=== PATIENT | male | born 1985 | race African-American/Black ===

== ENCOUNTER 2019-07-23 10:01 | Emergency (ER) | payer OTHER ==
[2019-07-23 10:08] VITALS: BP 128/86; PULSE 74; TEMP 98.6; BMI 31.8
--- NOTE | 2019-07-23 10:29 | PDOC ---
History of Present Illness - General History Source: Patient Exam Limitations: No Limitations <Lisa Obando - Last Filed: 07/23/19 13:02> <Juan Diego Canela - Last Filed: 07/23/19 15:00> - General Chief Complaint: Edema Stated Complaint: PAIN Time Seen by Provider: 07/23/19 10:18 Past History - Travel Traveled outside of the country in the last 30 days: No Close contact w/someone who was outside of country & ill: No - Past Medical History COPD: No - Suicide/Smoking/Psychosocial Hx Smoking History: Never smoked Hx Alcohol Use: Yes Drug/Substance Use Hx: No <Lisa Obando - Last Filed: 07/23/19 13:02> <Juan Diego Canela - Last Filed: 07/23/19 15:00> - Past Medical History Allergies/Adverse Reactions: Allergies Allergy/AdvReac Type Severity Reaction Status Date / Time No Known Allergies Allergy Verified 07/23/19 10:07 Home Medications: Ambulatory Orders Diphenhydramine HCl [Benadryl -] 25 mg PO Q8H #21 capsule 07/23/19 predniSONE [Deltasone -] 40 mg PO DAILY #8 tablet 07/23/19 Review of Systems - Review of Systems Able to Perform ROS?: Yes Comments:: 07/23/19 13:02 CONSTITUTIONAL: Absent: fever, chills, diaphoresis, generalized weakness, malaise, loss of appetite HEENT: Present: difficulty swallowing, sore throat Absent: rhinorrhea, nasal congestion , throat swelling, mouth swelling, ear pain, eye pain, visual Changes CARDIOVASCULAR: Absent: chest pain, loss of consciousness, palpitations, irregular heart rate, peripheral edema RESPIRATORY: Absent: cough, shortness of breath, dyspnea with exertion, orthopnea, wheezing, stridor, hemoptysis GASTROINTESTINAL: Absent: abdominal pain, abdominal distension, nausea, vomiting, diarrhea, constipation, melena, hematochezia GENITOURINARY: Absent: dysuria, frequency, urgency, hesitancy, hematuria, flank pain, genital pain MUSCULOSKELETAL: Absent: myalgia, arthralgia, joint swelling SKIN: Absent: rash, itching, pallor HEMATOLOGIC/IMMUNOLOGIC: Absent: easy bleeding, easy bruising, lymphadenopathy, frequent infections ENDOCRINE: Absent: unexplained weight gain, unexplained weight loss, heat intolerance, cold intolerance NEUROLOGIC: Absent: headache, focal weakness or paresthesias, dizziness, unsteady gait, seizure, mental status changes, bladder or bowel incontinence PSYCHIATRIC: Absent: anxiety, depression, suicidal or homicidal ideation, hallucinations. Is the patient limited Swiss proficient: No <Lisa Obando - Last Filed: 07/23/19 13:02> *Physical Exam - Vital Signs Last Vital Signs Temp Pulse Resp BP Pulse Ox 98.6 F 74 16 128/86 97 07/23/19 10:03 07/23/19 10:03 07/23/19 10:03 07/23/19 10:03 07/23/19 10:03 - Physical Exam Comments: 07/23/19 13:04 GENERAL: Well developed, well nourished. Awake and alert. No acute distress. Pt is swallowing his secretions. HEENT: Normocephalic, atraumatic. PERRLA, EOMI. No conjunctival pallor. Sclera are non- icteric. Moist mucous membranes. Oropharynx is with an edematous uvula and associated erythema without exudate. Uvula is midline. No stridor noted NECK: Supple. Full ROM. No JVD. Carotid pulses 2+ and symmetric, without bruits. No thyromegaly. No lymphadenopathy. CARDIOVASCULAR: Regular rate and rhythm. No murmurs, rubs, or gallops. Distal pulses are 2+ and symmetric. PULMONARY: No evidence of respiratory distress. Lungs clear to auscultation bilaterally. No wheezing, rales or rhonchi. SKIN: Warm and dry. Normal capillary refill. No rashes. No jaundice. NEUROLOGICAL: Alert, awake, appropriate. Cranial nerves 2-12 intact. No deficits to light touch and temperature in face, upper extremities and lower extremities. No motor deficits in the in face, upper extremities and lower extremities. Normoreflexic in the upper and lower extremities. Normal speech. Toes are down- going bilaterally. Gait is normal without ataxia. PSYCHIATRIC: Cooperative. Good eye contact. Appropriate mood and affect. <Lisa Obando - Last Filed: 07/23/19 13:02> - Vital Signs Last Vital Signs Temp Pulse Resp BP Pulse Ox 98.6 F 74 16 128/86 97 07/23/19 10:03 07/23/19 10:03 07/23/19 10:03 07/23/19 10:03 07/23/19 10:03 <Juan Diego Canela - Last Filed: 07/23/19 15:00> ED Treatment Course - Medications Given in the ED: ED Medications Discontinued Medications Generic Name Dose Route Start Last Admin Trade Name Torrey PRN Reason Stop Dose Admin Acetaminophen 650 mg 07/23/19 10:33 07/23/19 10:58 Tylenol Oral Solution - PO 07/23/19 10:34 650 mg ONCE ONE Administration Dexamethasone 10 mg 07/23/19 10:33 07/23/19 10:58 Decadron Liquid - PO 07/23/19 10:34 10 mg ONCE ONE Administration Diphenhydramine HCl 25 mg 07/23/19 11:12 07/23/19 11:19 Benadryl Oral Solution - PO 07/23/19 11:13 25 mg ONCE ONE Administration Ranitidine HCl 300 mg 07/23/19 11:12 07/23/19 11:19 Zantac - PO 07/23/19 11:13 300 mg ONCE ONE Administration <Juan Diego Canela - Last Filed: 07/23/19 15:00> Medical Decision Making - Medical Decision Making 07/23/19 13:37 The patient is a 34 y/o M with no PMH who presents to the ER with difficulty swallowing and throat pain. The patient feels like there is something stuck in his throat. The pain started after vomiting yesterday. Denies fevers, chills, cough. Pt is able to swallow his secretions. He has his vaccinations. A/P: Uvulitis On exam the uvula is edematous and erythematous. No exudate noted. Pt swallowing secretions. No stridor X-ray neck soft tissue obtained. No evidence of Epiglottis Strep negative Steroids, Benadryl, Zantac and Tylenol given with relief of symptoms DC home with strict return precautions; ENT follow up given I discussed the physical exam findings, ancillary test results and final diagnoses with the patient. I answered all of the patient's questions. The patient was satisfied with the care received and felt comfortable with the discharge plan and treatment plan. The Patient agrees to follow up with the primary care physician/specialist within 24-72 hours. Return precautions were given. <Lisa Obando - Last Filed: 07/23/19 13:02> *DC/Admit/Observation/Transfer - Discharge Dispostion Decision to Admit order: No <Lisa Obando - Last Filed: 07/23/19 13:02> <Juan Diego Canela - Last Filed: 07/23/19 15:00> Diagnosis at time of Disposition: Uvulitis - Discharge Dispostion Disposition: HOME Condition at time of disposition: Stable - Prescriptions Prescriptions: Diphenhydramine HCl [Benadryl -] 25 mg PO Q8H #21 capsule predniSONE [Deltasone -] 40 mg PO DAILY #8 tablet - Referrals Referrals: Ketan Moody MD [Staff Physician] - - Patient Instructions Printed Discharge Instructions: DI for Uvulitis Additional Instructions: You have uvulitis (inflammation of your uvula) Your x-ray was normal and your strep test was negative Please take the prednisone as directed starting tomorrow. You got your first dose in the ED today Take the benadryl every 8 hours to help with the inflammation You may take Tylenol 650mg every 4 hours as needed for pain Follow up with ENT this week. A referral has been provided to you Return to the ER for worsening pain, difficulty swallowing, if you are unable to swallow your spit, have difficulty breathing or if you have any changes in your symptoms. - Post Discharge Activity Forms/Work/School Notes: Back to Work
[2019-07-23] MEDS ORDERED: ACETAMINOPHEN 650 MG/20.3 ML ORAL SOLUTION (CUPS) PO ONE (10:33)
[2019-07-23] MEDS ORDERED: DEXAMETHASONE LIQUID 0.5 MG/5 ML PO ONE (10:33)
[2019-07-23] MEDS ORDERED: ACETAMINOPHEN 650 MG/20.3 ML ORAL SOLUTION (CUPS) ONE (10:48)
[2019-07-23] MEDS ORDERED: DEXAMETHASONE SOD PHOSPHATE 10 MG/1 ML VIAL ONE (10:48)
[2019-07-23] MEDS ORDERED: diphenhydrAMINE HCL 12.5 MG/5 ML BULK BOTTLE ONE (10:52)
[2019-07-23] MEDS ORDERED: RANITIDINE HCL 150 MG TABLET (FP) ONE (10:53)
[2019-07-23] MEDS ORDERED: RANITIDINE HCL 150 MG TABLET (FP) PO ONE (11:12)
[2019-07-23] MEDS ORDERED: diphenhydrAMINE HCL 12.5 MG/5 ML UNIT-DOSE CUPS PO ONE (11:12)
== END 2019-07-23 12:48 | disposition home or self-care (01) ==
LOC: JER 10:01
DX: K12.2 Cellulitis and abscess of mouth (principal)
CPT/HCPCS: 70360-TC-FY; 87070; 87880; 99281-25

== ENCOUNTER 2019-08-21 09:25 | Emergency (ER) | payer OTHER ==
[2019-08-21 09:30] VITALS: BP 136/69; PULSE 83; TEMP 98; BMI 32.1
--- NOTE | 2019-08-21 10:46 | PDOC ---
History of Present Illness - General Chief Complaint: Pain, Acute Stated Complaint: LF FOOT INJURY Time Seen by Provider: 08/21/19 10:07 History Source: Patient Exam Limitations: No Limitations - History of Present Illness Initial Comments: 08/21/19 10:55 Here with complaints of left foot pain, atraumatic. 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 Wears good shoes. Denies any history of gout or other disease to the feet, states had a bad ankle sprain some years ago but does not feel that the same problem. States pain is worse in the morning when he stands. Occurred: reports: last week Severity: reports: mild, moderate Pain Location: reports: lower extremity (left foot ) Method of Injury: Yes: unknown Modifying Factors: improves with: None Loss of Consciousness: no loss of consciousness Associated Symptoms (Fall): denies symptoms Past History - Travel Traveled outside of the country in the last 30 days: No Close contact w/someone who was outside of country & ill: No - Past Medical History Allergies/Adverse Reactions: Allergies Allergy/AdvReac Type Severity Reaction Status Date / Time No Known Allergies Allergy Verified 07/23/19 10:07 Home Medications: Ambulatory Orders Diphenhydramine HCl [Benadryl -] 25 mg PO Q8H #21 capsule 07/23/19 predniSONE [Deltasone -] 40 mg PO DAILY #8 tablet 07/23/19 Naproxen [Naprosyn -] 500 mg PO BID #30 tablet 08/21/19 COPD: No - Immunization History Immunization Up to Date: No - Psycho Social/Smoking Cessation Hx Smoking History: Never smoked Have you smoked in the past 12 months: No Information on smoking cessation initiated: No Hx Alcohol Use: No Drug/Substance Use Hx: No Review of Systems - Review of Systems Able to Perform ROS?: Yes Is the patient limited Slovenian proficient: Yes Constitutional: Yes: See HPI. No: Symptoms Reported, Fever, Malaise HEENTM: No: Symptoms Reported Respiratory: No: Symptoms reported Musculoskeletal: Yes: Symptoms Reported, See HPI, Muscle Pain Integumentary: Yes: See HPI. No: Symptoms Reported Neurological: No: Symptoms reported All Other Systems: Reviewed and Negative *Physical Exam - Vital Signs Last Vital Signs Temp Pulse Resp BP Pulse Ox 98.0 F 83 18 136/69 100 08/21/19 09:28 08/21/19 09:28 08/21/19 09:28 08/21/19 09:28 08/21/19 09:28 - Physical Exam General Appearance: Yes: Nourished, Appropriately Dressed, Mild Distress HEENT: positive: EOMI, ERON, Normal ENT Inspection, TMs Normal, Pharynx Normal Neck: positive: Supple. negative: Lymphadenopathy (R), Lymphadenopathy (L) Respiratory/Chest: positive: Lungs Clear, Normal Breath Sounds Extremity: positive: Normal Inspection, Normal Range of Motion, Other (pain along plantar fascia starting at heel and extending along lateral aspect of left foot to metatarsal. Flexion and extension to lateral third fourth and fifth toes reproduces pain to the bottom of foot. Neurovascular intact to toes , and pulses are palpable.). 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, Fully Oriented, Alert, Normal Mood/ Affect, Normal Response, Motor Strength 03/18 ED Progress Note - Progress Note Progress Note: 08/21/19 10:45 Plantar fasciitis, will treat with NSAIDS , Rest, F/U with ORTHO 08/21/19 10:48 08/21/19 10:57 Discharge - Discharge Information Problems reviewed: Yes Clinical Impression/Diagnosis: Plantar fasciitis of left foot Condition: Stable Disposition: HOME - Admission No - Additional Discharge Information Prescriptions: Naproxen [Naprosyn -] 500 mg PO BID #30 tablet - Follow up/Referral - Patient Discharge Instructions Patient Printed Discharge Instructions: DI for Plantar Fasciitis Additional Instructions: Rest, ice to area on and off for 15 minutes 4-6 times a day Avoid heavy lifting or exercise until pain and swelling is resolved or until further directed Keep area highly elevated to reduce swelling Wear supportive shoes/tennis shoes-sneakers Freeze water in a Coca-Cola bottle, and gently roll along bottom of foot to assist with icing the area Use splints/Qu[place] wrap as directed Followup with orthopedist in one to 2 days if not improving, if significantly improved may wait one week for followup with orthopedist May consider alternative modalities including physical therapy, acupuncture or pressure, naturopathic rubs like Arnica creams May use ibuprofen 2-200 mg tablets every 6 hours as needed for pain - Post Discharge Activity Work/Back to School Note: Back to Work
== END 2019-08-21 10:53 | disposition home or self-care (01) ==
LOC: JERFT 09:25
DX: M72.2 Plantar fascial fibromatosis (principal)
CPT/HCPCS: 99282-25

== ENCOUNTER 2019-08-28 10:58 | Emergency (ER) | payer OTHER ==
[2019-08-28 11:36] VITALS: BP 142/92; PULSE 96; TEMP 98; BMI 32.1
--- NOTE | 2019-08-28 12:08 | PDOC ---
History of Present Illness - General Chief Complaint: Pain, Acute Stated Complaint: LT. FOOT PAIN Time Seen by Provider: 08/28/19 11:38 - History of Present Illness Initial Comments: 08/28/19 12:07 34-year-old male without comorbidities presents for re-exacerbation of left foot plantar fasciitis seen in the emergency room however he never followed up with orthopedic surgery. He is on naproxen with minimal relief Past History - Past Medical History Allergies/Adverse Reactions: Allergies Allergy/AdvReac Type Severity Reaction Status Date / Time No Known Allergies Allergy Verified 08/28/19 11:36 Home Medications: Ambulatory Orders Diphenhydramine HCl [Benadryl -] 25 mg PO Q8H #21 capsule 07/23/19 predniSONE [Deltasone -] 40 mg PO DAILY #8 tablet 07/23/19 Naproxen [Naprosyn -] 500 mg PO BID #30 tablet 08/21/19 COPD: No - Surgical History Appendectomy: Yes - Immunization History Immunization Up to Date: No - Psycho Social/Smoking Cessation Hx Smoking History: Never smoked Have you smoked in the past 12 months: No Hx Alcohol Use: No Drug/Substance Use Hx: No Review of Systems - Review of Systems Musculoskeletal: Yes: See HPI *Physical Exam - Vital Signs Last Vital Signs Temp Pulse Resp BP Pulse Ox 98 F 96 H 18 142/92 100 08/28/19 11:33 08/28/19 11:33 08/28/19 11:33 08/28/19 11:33 08/28/19 11:33 - Physical Exam Comments: 08/28/19 12:07 Left foot and ankle skin color and temperature normal range of motion is full. There is tenderness about the medial tubercle of the calcaneus along the plantar fascia. No gross sensorimotor deficits or instability neurovascular intact Medical Decision Making - Medical Decision Making 08/28/19 12:07 Discussed plantar fasciitis the use of anti-inflammatories and importance of orthopedic surgery follow-up plus or minus a cortisone shot and formal physical therapy patient is requesting a week off of work in order to get this done we are in agreement with the plan of treatment he will follow-up with orthopedic surgery Discharge - Discharge Information Problems reviewed: Yes Clinical Impression/Diagnosis: Plantar fascia syndrome, Plantar fasciitis of left foot Condition: Stable Disposition: HOME - Admission No - Follow up/Referral Referrals: Justin Colmenares DO [Staff Physician] - - Patient Discharge Instructions Additional Instructions: Continue with anti-inflammatories as directed return to the emergency room for worsening symptoms. Without fail, in 1 to 2 days follow-up with orthopedic surgery as discussed - Post Discharge Activity Work/Back to School Note: Back to Work
== END 2019-08-28 12:13 | disposition home or self-care (01) ==
LOC: JERFT 10:58
DX: M72.2 Plantar fascial fibromatosis (principal)
CPT/HCPCS: 99281-25